=== PATIENT | male | born 1980 | race Caucasian/White ===

== ENCOUNTER 2018-06-10 16:30 | Emergency (ER) | payer BC ==
[~2018-06-10] VITALS: Ht 185.4 cm; Wt 99.8 kg
[~2018-06-10 16:30] MED LIST: CEPHALEXIN500 M1 PO; CLARITIN10 MG PO; DAYPRO600 M1 PO; HYDROCODONE BIT1 T11 PO; IBU800 M1 PO; IBU800 MG PO; MECLIZINE HCL25 M2 PO; MEDROL DOSEPAK4 MG PO; MOTRIN800 MG PO; PREDNISONE10 MG PO; ROBAXIN750 MG PO; SKELAXIN800 MG PO; SUBOXONE 8 MG-1 EACH SL; ZANTAC150 MG PO
[2018-06-10] MEDS ORDERED: PREDNISONE10 MG PO (16:42)
== END 2018-06-10 18:05 | disposition home or self-care (01) ==
LOC: ED 16:30
DX: M25.511 Pain in right shoulder (principal); R03.0 Elevated blood-pressure reading, without diagnosis of hypertension; Z79.899 Other long term (current) drug therapy

== ENCOUNTER 2021-03-24 06:31 | Emergency (ER) | payer OTHER ==
[~2021-03-24] VITALS: Ht 187.9 cm; Wt 111.1 kg
[2021-03-24 08:27] LABS: BASO # 0.1 10*3/uL (0.0-0.1); BASO % 0.9 % (0.0-1.0); EOS # 0.4 10*3/uL (0.0-0.4); EOS % 2.8 % (1.0-4.0); LYMPH # 3.1 10*3/uL (1.3-4.4); LYMPH % 23.3 % (27.0-41.0); MEAN CELL VOLUME 95.5 fl (80.0-94.0); MEAN CORPUSCULAR HGB 31.4 pg (27.0-31.0); MEAN CORPUSCULAR HGB CONC 32.9 g/dl (33.0-37.0); MEAN PLATELET VOLUME 8.4 fl (9.6-12.3); MONO # 0.8 10*3/uL (0.1-1.0); MONO % 5.8 % (3.0-9.0); NEUT # 8.7 10*3/uL (2.3-7.9); NEUT % 66.6 % (47.0-73.0); PLATELET COUNT AUTOMATED 253 10*3/uL (130-400); RED CELL DISTRI WIDTH 13.4 % (0-14.5); WHITE BLOOD COUNT 13.1 10*3/uL (4.8-10.8)
[2021-03-24 08:44] LABS: ALBUMIN 3.4 gm/dl (3.1-4.5); ALKALINE PHOSPHATASE 114 U/L (45-117); BUN 7 mg/dl (7-24); CHLORIDE 107 mmol/L (98-107); LIPASE 121 U/L (73-393); POTASSIUM 4.1 mmol/L (3.5-5.1); SGOT/AST 16 IU/L (3-35); SGPT/ALT 29 U/L (12-78); SODIUM 138 mmol/L (136-145); TOTAL PROTEIN 7.2 gm/dL (6.4-8.2)
[2021-03-24 08:59] LABS: BILIRUBIN Negative (Negative); BLOOD Negative (Negative); CLARITY Clear (Clear); COLOR Yellow (Yellow); GLUCOSE Negative (Negative); KETONE Negative (Negative); LEUKO ESTERASE Negative (Negative); NITRITE Negative (Negative); PH 6.5 (4.5-8.0); SPECIFIC GRAVITY 1.015 (1.001-1.030)
[2021-03-24 09:09] LABS: WBC 0-2 wbc/hpf (0-5)
[2021-03-24] MEDS ORDERED: ZITHROMAX250 MG PO (11:38)
[2021-03-24] MEDS ORDERED: PREDNISONE50 MG PO (11:38)
== END 2021-03-24 11:50 | disposition home or self-care (01) ==
LOC: ED 06:31
PROVIDERS: Emergency Medicine
DX: S39.011A Strain of muscle, fascia and tendon of abdomen, initial encounter (principal); J20.9 Acute bronchitis, unspecified; R07.81 Pleurodynia; F17.200 Nicotine dependence, unspecified, uncomplicated; Z79.2 Long term (current) use of antibiotics; Z79.899 Other long term (current) drug therapy; X58.XXXA Exposure to other specified factors, initial encounter; Y93.89 Activity, other specified; Y92.89 Other specified places as the place of occurrence of the external cause; Y99.8 Other external cause status

== ENCOUNTER → 2025-02-12 | Outpatient (CLI) | payer OTHER ==
[~2025-02-12] MED LIST changes: +PREDNISONE50 MG PO; +ZITHROMAX250 MG PO
== END | disposition home or self-care (01) ==
LOC: RAD 07:38
PROVIDERS: ATTEND Chiropractor
DX: M46.06 Spinal enthesopathy, lumbar region (principal); I70.0 Atherosclerosis of aorta; M54.50 Low back pain, unspecified

== ENCOUNTER 2025-06-03 20:34 | Inpatient (IN) | payer OTHER ==
[~2025-06-03] VITALS: Ht 185.4 cm; Wt 152.7 kg
[2025-06-03 20:39] VITALS: BP 143/72
[2025-06-03] MEDS ORDERED: Ondansetron Hydrochloride 4 MG/2 ML VIAL IV ONE (21:00)
[2025-06-03] MEDS ORDERED: SODIUM CHLORIDE 0.9% 1,000 ML IV ONE (21:00)
[2025-06-03 21:20] LABS: BASO # 0.1 10*3/uL (0.0-0.1); BASO % 0.6 % (0.0-1.0); EOS # 0.1 10*3/uL (0.0-0.4); EOS % 0.9 % (1.0-4.0); MEAN CELL VOLUME 94.1 fl (80.0-94.0); MEAN CORPUSCULAR HGB 32.6 pg (27.0-31.0); MEAN PLATELET VOLUME 8.9 fl (9.6-12.3); MONO # 0.8 10*3/uL (0.1-1.0); MONO % 5.3 % (3.0-9.0); NEUT # 12.5 10*3/uL (2.3-7.9); NEUT % 79.5 % (47.0-73.0); NUCLEATED RED BLOOD CELL 0.0 % (0.0-0.0); NUCLEATED RED BLOOD CELL 0.0 10*3/uL (0.0-0.0); PLATELET COUNT AUTOMATED 239 10*3/uL (130-400); RED CELL DISTRI WIDTH 12.7 % (0-14.5)
[2025-06-03] MEDS ORDERED: SODIUM CHLORIDE 0.9% 1,000 ML IV SCH (21:45)
[2025-06-03 21:46] LABS: BUN 22 mg/dl (9-23); SGPT/ALT 116 U/L (5-49)
[2025-06-03] MEDS ORDERED: INSULIN REGULAR, HUMAN 1 UNIT/0.01 ML IV ONE (22:00)
[2025-06-03] MEDS ORDERED: diphenhydrAMINE hydrochloride 50 MG/ML VIAL IV ONE (22:40)
[2025-06-03] MEDS ORDERED: Metoclopramide Hydrochloride 10 MG/2 ML VIAL IV ONE (22:40)
[2025-06-03 22:56] LABS: BILIRUBIN Negative (Negative); BLOOD Negative (Negative); CLARITY Clear (Clear); COLOR Yellow (Yellow); KETONE Trace (Negative); LEUKO ESTERASE Negative (Negative); NITRITE Negative (Negative); PH 5.0 (4.5-8.0); SPECIFIC GRAVITY >= 1.030 (1.001-1.030); UROBILINOGEN 0.2 E.U./dl (0.0-1.0)
[2025-06-03 23:04] LABS: BACTERIA TRACE; WBC 0-2 wbc/hpf (0-5)
[2025-06-04] VITALS (8 sets, daily range): BP systolic 117–162; BP diastolic 63–92
[2025-06-04] MEDS ORDERED: BISACODYL 10 MG SUPP R PRN (00:20)
[2025-06-04] MEDS ORDERED: BISACODYL 5 MG TAB PO PRN (00:20)
[2025-06-04] MEDS ORDERED: DEXTROSE 50% 25 GM/50 ML VIAL IV PRN (00:20)
[2025-06-04] MEDS ORDERED: ACETAMINOPHEN 650 MG SUPP R PRN (00:20)
[2025-06-04] MEDS ORDERED: ACETAMINOPHEN 325 MG TAB PO PRN (00:20)
[2025-06-04] MEDS ORDERED: Ondansetron Hydrochloride 4 MG/2 ML VIAL IV PRN (00:20)
[2025-06-04] MEDS ORDERED: IBUPROFEN 600 MG TAB PO PRN (00:25)
[2025-06-04 02:28] LABS: BASO # 0.1 10*3/uL (0.0-0.1); BASO % 0.6 % (0.0-1.0); EOS # 0.2 10*3/uL (0.0-0.4); EOS % 0.8 % (1.0-4.0); MEAN CELL VOLUME 95.4 fl (80.0-94.0); MEAN CORPUSCULAR HGB 32.6 pg (27.0-31.0); MEAN PLATELET VOLUME 8.7 fl (9.6-12.3); MONO # 1.0 10*3/uL (0.1-1.0); MONO % 5.5 % (3.0-9.0); NEUT # 14.8 10*3/uL (2.3-7.9); NEUT % 78.6 % (47.0-73.0); NUCLEATED RED BLOOD CELL 0.0 % (0.0-0.0); NUCLEATED RED BLOOD CELL 0.0 10*3/uL (0.0-0.0); PLATELET COUNT AUTOMATED 243 10*3/uL (130-400); RED CELL DISTRI WIDTH 12.6 % (0-14.5)
[2025-06-04 02:52] LABS: ACT PARTIAL THROMBO TIME 24.2 SECONDS (20.0-32.1)
[2025-06-04 02:53] LABS: BUN 20 mg/dl (9-23); FREE T4 1.21 ng/dl (0.89-1.76); SGPT/ALT 110 U/L (5-49)
[2025-06-04] MEDS ORDERED: SODIUM CHLORIDE 0.9% 1,000 ML IV SCH (03:45)
[2025-06-04 03:54] LABS: VITAMIN D, 25-HYDROXY 15.7 ng/mL (30-100)
[2025-06-04] MEDS ORDERED: ATORVASTATIN CALCIUM 80 MG TAB PO SCH (07:15)
[2025-06-04] MEDS ORDERED: INSULIN LISPRO 1 UNIT/0.01 ML SQ SCH (07:30)
[2025-06-04] MEDS ORDERED: SODIUM CHLORIDE 0.9% 1,000 ML IV ONE (09:35)
[2025-06-04] MEDS ORDERED: Cholecalciferol 2,000 UNIT TABLET (50 MCG) PO SCH (10:00)
[2025-06-04] MEDS ORDERED: LISINOPRIL40 MG PO (13:47)
[2025-06-04] MEDS ORDERED: LEVOTHYROXINE200 MC2 PO (13:47)
[2025-06-04] MEDS ORDERED: HYDR25T PO (13:48)
[2025-06-04] MEDS ORDERED: NORVASC10 MG PO (13:49)
[2025-06-04] MEDS ORDERED: LISINOPRIL 40 MG TAB PO SCH (14:25)
[2025-06-04] MEDS ORDERED: Insulin Glargine, Recombinan 1 UNIT/0.01 ML SC SCH (19:00)
[2025-06-05] VITALS: BP 120/70
[2025-06-05 06:31] LABS: BASO # 0.1 10*3/uL (0.0-0.1); BASO % 0.4 % (0.0-1.0); EOS # 0.1 10*3/uL (0.0-0.4); EOS % 0.7 % (1.0-4.0); MEAN CELL VOLUME 97.6 fl (80.0-94.0); MEAN CORPUSCULAR HGB 33.0 pg (27.0-31.0); MEAN PLATELET VOLUME 8.7 fl (9.6-12.3); MONO # 1.1 10*3/uL (0.1-1.0); MONO % 7.2 % (3.0-9.0); NEUT # 11.6 10*3/uL (2.3-7.9); NEUT % 77.7 % (47.0-73.0); NUCLEATED RED BLOOD CELL 0.0 % (0.0-0.0); NUCLEATED RED BLOOD CELL 0.0 10*3/uL (0.0-0.0); PLATELET COUNT AUTOMATED 182 10*3/uL (130-400); RED CELL DISTRI WIDTH 12.6 % (0-14.5)
[2025-06-05 06:58] LABS: BUN 10 mg/dl (9-23)
[2025-06-05 08:00] VITALS: BP 152/87
[2025-06-05] MEDS ORDERED: MAGNESIUM CITRATE 296 ML BOT PO ONE (09:35)
[2025-06-05] MEDS ORDERED: LISINOPRIL 40 MG TAB PO SCH (10:00)
[2025-06-05] MEDS ORDERED: FENOFIBRATE 48 MG TAB PO SCH (10:00)
[2025-06-05 12:00] VITALS: BP 139/80
[2025-06-05 16:00] VITALS: BP 120/66
[2025-06-05 20:00] VITALS: BP 134/64
[2025-06-05 22:00] VITALS: BP 134/64
[2025-06-06] VITALS: BP 103/61
[2025-06-06 04:00] VITALS: BP 198/71
[2025-06-06 06:13] LABS: BUN 13 mg/dl (9-23); SGPT/ALT 65 U/L (5-49)
[2025-06-06 06:42] LABS: BASO # 0.1 10*3/uL (0.0-0.1); BASO % 0.6 % (0.0-1.0); EOS # 0.2 10*3/uL (0.0-0.4); EOS % 1.4 % (1.0-4.0); MEAN CELL VOLUME 100.0 fl (80.0-94.0); MEAN CORPUSCULAR HGB 32.1 pg (27.0-31.0); MEAN PLATELET VOLUME 9.4 fl (9.6-12.3); MONO # 1.2 10*3/uL (0.1-1.0); MONO % 8.6 % (3.0-9.0); NEUT # 10.3 10*3/uL (2.3-7.9); NEUT % 75.0 % (47.0-73.0); NUCLEATED RED BLOOD CELL 0.0 % (0.0-0.0); NUCLEATED RED BLOOD CELL 0.0 10*3/uL (0.0-0.0); PLATELET COUNT AUTOMATED 191 10*3/uL (130-400); RED CELL DISTRI WIDTH 12.6 % (0-14.5)
[2025-06-06 08:00] VITALS: BP 104/61
[2025-06-06 12:00] VITALS: BP 115/68
[2025-06-06] MEDS ORDERED: VITAMIN D350 MCG PO (13:01)
[2025-06-06] MEDS ORDERED: FENOFIBRATE48 M1 PO (13:01)
[2025-06-06] MEDS ORDERED: FISH OIL PO (13:01)
[2025-06-06] MEDS ORDERED: METFORMIN HCL500 M2 PO (13:01)
[2025-06-06] MEDS ORDERED: LANTUS SOL100 UNIT/1 SC (13:01)
== END 2025-06-06 13:45 | disposition home or self-care (01) | DRG 438 ==
LOC: ED 20:34 → 5E 23:38 → EDHOLD 23:38 → 5E 06-04 12:46
PROVIDERS: Internal Medicine; Nurse Practitioner Family; Student in an Organized Health Care Education/Training Program; ADMIT Student in an Organized Health Care Education/Training Program; ATTEND Student in an Organized Health Care Education/Training Program
DX: K85.00 Idiopathic acute pancreatitis without necrosis or infection (principal); N17.0 Acute kidney failure with tubular necrosis; E87.1 Hypo-osmolality and hyponatremia; R65.10 Systemic inflammatory response syndrome (SIRS) of non-infectious origin without acute organ dysfunction; E87.20 Acidosis, unspecified; Z68.41 Body mass index [BMI] 40.0-44.9, adult; K76.0 Fatty (change of) liver, not elsewhere classified; E66.01 Morbid (severe) obesity due to excess calories; E87.8 Other disorders of electrolyte and fluid balance, not elsewhere classified; R74.01 Elevation of levels of liver transaminase levels; F17.210 Nicotine dependence, cigarettes, uncomplicated; Z20.822 Contact with and (suspected) exposure to COVID-19; E11.65 Type 2 diabetes mellitus with hyperglycemia; D53.9 Nutritional anemia, unspecified; F12.10 Cannabis abuse, uncomplicated; Z82.49 Family history of ischemic heart disease and other diseases of the circulatory system; Z71.6 Tobacco abuse counseling; Z83.3 Family history of diabetes mellitus; Z79.899 Other long term (current) drug therapy; Z82.3 Family history of stroke